=== PATIENT | female | born 1945 | race Caucasian/White ===

== ENCOUNTER → 2023-05-07 | Outpatient (CLI) | payer OTHER ==
[~2023-05-07] MED LIST: ASPI-556 PO; LEVO100T12 PO; LISI1TAB49 PO; NIAC500T22 PO; SIMV10TA97 PO; VIT B6 PO; VIT1TABL69 PO
== END | disposition home or self-care (01) ==
LOC: SHCH 13:14
PROVIDERS: ATTEND Internal Medicine Cardiovascular Disease
DX: I35.1 Nonrheumatic aortic (valve) insufficiency (principal); I48.0 Paroxysmal atrial fibrillation; I11.9 Hypertensive heart disease without heart failure
CPT/HCPCS: 93306